=== PATIENT | female | born 1955 | race Caucasian/White ===

== ENCOUNTER 2018-05-23 05:53 | Emergency (ER) | payer BC ==
[~2018-05-23] VITALS: Ht 170.1 cm; Wt 95.3 kg
[~2018-05-23 05:53] MED LIST: ROBAXIN750 MG PO; VOLTAREN50 M1 PO; ZOLOFT50 MG PO
[2018-05-23] MEDS ORDERED: METHYLPRED-DP4 MG PO (05:59)
[2018-05-23] MEDS ORDERED: Motrin,Rufen800 MG PO (07:08)
[2018-05-23] MEDS ORDERED: ORPHENADRINE C100 M1 PO (07:09)
== END 2018-05-23 07:59 | disposition home or self-care (01) ==
LOC: ED 05:53
DX: M54.16 Radiculopathy, lumbar region (principal)

== ENCOUNTER 2019-07-29 11:15 | Inpatient (IN) | payer BC, MEDICARE ==
[~2019-07-29] VITALS: Ht 167.6 cm; Wt 103.0 kg
[2019-07-29] VITALS (8 sets, daily range): BP systolic 90–133; BP diastolic 42–69
[~2019-07-29 11:15] MED LIST changes: +METHYLPRED-DP4 MG PO; +Motrin,Rufen800 MG PO; +ORPHENADRINE C100 M1 PO
[2019-07-29 11:48] LABS: BASO # 0.1 10*3/uL (0.0-0.1); BASO % 0.7 % (0.0-1.0); EOS # 0.3 10*3/uL (0.0-0.4); EOS % 3.5 % (1.0-4.0); HEMATOCRIT 41.4 % (37.0-47.0); HEMOGLOBIN 13.5 g/dl (12.0-16.0); LYMPH % 28.3 % (27.0-41.0); MEAN CELL VOLUME 88.1 fl (81.0-99.0); MEAN CORPUSCULAR HGB 28.7 pg (27.0-31.0); MEAN CORPUSCULAR HGB CONC 32.6 g/dl (33.0-37.0); MEAN PLATELET VOLUME 9.3 fl (9.6-12.3); MONO # 0.5 10*3/uL (0.1-1.0); NEUT # 4.3 10*3/uL (2.3-7.9); NEUT % 60.1 % (47.0-73.0); PLATELET COUNT AUTOMATED 206 10*3/uL (130-400); RED CELL DISTRI WIDTH 13.3 % (0-14.5); WHITE BLOOD COUNT 7.2 10*3/uL (4.8-10.8)
[2019-07-29 11:59] LABS: ACT PARTIAL THROMBO TIME 21.9 SECONDS (20.0-32.1); INTERNATIONAL NORM RATIO 0.9 (2.0-3.5)
[2019-07-29 12:05] LABS: ALBUMIN 3.5 gm/dl (3.1-4.5); ALKALINE PHOSPHATASE 92 U/L (45-117); BUN 14 mg/dl (7-24); CHLORIDE 114 mmol/L (98-107); CREATININE 0.95 mg/dL (0.55-1.02); POTASSIUM 3.8 mmol/L (3.5-5.1); SGOT/AST 22 IU/L (3-35); SGPT/ALT 35 U/L (12-78); SODIUM 143 mmol/L (136-145); TOTAL PROTEIN 6.8 gm/dL (6.4-8.2)
[2019-07-29 12:09] LABS: TROPONIN I < 0.015 ng/ml (<0.045)
[2019-07-29] MEDS ORDERED: ZOLOFT50 MG PO (14:17)
[2019-07-29 14:50] LABS: BILIRUBIN NEGATIVE (NEGATIVE); BLOOD NEGATIVE (NEGATIVE); CLARITY SL CLOUDY (CLEAR); COLOR YELLOW (YELLOW); GLUCOSE NEGATIVE (NEGATIVE); KETONE NEGATIVE (NEGATIVE); LEUKO ESTERASE NEGATIVE (NEGATIVE); NITRITE POSITIVE (NEGATIVE); PH 5.5 (5.0-9.0); SPECIFIC GRAVITY 1.015 (1.005-1.030); UROBILINOGEN 0.2 E.U./dl (0.2-1.0)
[2019-07-29 14:56] LABS: BACTERIA 4+
--- NOTE | 2019-07-29 20:45 | NUR ---
PATIENT REPORTS ALLERGY TO CIPROFLOXACIN. DR MEDRANO NOTIFIED AND ADDED TO ALLERGY LIST. NEW ORDER FOR CEFTRIAXONE 1GM
[2019-07-30] VITALS: BP 84/44
[2019-07-30 00:08] VITALS: BP 100/56
[2019-07-30 06:11] LABS: BASO % 0.4 % (0.0-1.0); EOS # 0.2 10*3/uL (0.0-0.4); EOS % 2.8 % (1.0-4.0); HEMATOCRIT 38.3 % (37.0-47.0); HEMOGLOBIN 12.3 g/dl (12.0-16.0); LYMPH # 2.2 10*3/uL (1.3-4.4); LYMPH % 29.2 % (27.0-41.0); MEAN CELL VOLUME 90.1 fl (81.0-99.0); MEAN CORPUSCULAR HGB 28.9 pg (27.0-31.0); MEAN CORPUSCULAR HGB CONC 32.1 g/dl (33.0-37.0); MEAN PLATELET VOLUME 9.5 fl (9.6-12.3); MONO # 0.5 10*3/uL (0.1-1.0); MONO % 7.2 % (3.0-9.0); NEUT # 4.5 10*3/uL (2.3-7.9); NEUT % 60.1 % (47.0-73.0); PLATELET COUNT AUTOMATED 194 10*3/uL (130-400); RED BLOOD COUNT 4.25 10*6/uL (4.10-5.10); RED CELL DISTRI WIDTH 13.8 % (0-14.5); WHITE BLOOD COUNT 7.5 10*3/uL (4.8-10.8)
[2019-07-30 06:30] LABS: ALBUMIN 2.9 gm/dl (3.1-4.5); ALKALINE PHOSPHATASE 82 U/L (45-117); BUN 12 mg/dl (7-24); CHLORIDE 117 mmol/L (98-107); CREATININE 0.86 mg/dL (0.55-1.02); PHOSPHOROUS 2.8 mg/dL (2.5-4.9); POTASSIUM 4.2 mmol/L (3.5-5.1); SGOT/AST 14 IU/L (3-35); SGPT/ALT 32 U/L (12-78); SODIUM 146 mmol/L (136-145); TOTAL PROTEIN 5.9 gm/dL (6.4-8.2)
[2019-07-30 06:36] LABS: FREE T4 0.83 ng/dl (0.76-1.46); THYROID STIM HORMONE (HS) 0.979 uIU/ml (0.358-4.75)
[2019-07-30 07:35] VITALS: BP 110/68
--- NOTE | 2019-07-30 07:35 | NUR ---
ASSESSMENT COMPLETED AND DOCUMENTED. PT. VERY PLEASENT AND COOPERATIVE. RESTING IN BED. NO C/O OF DIZZINESS. NO SIGNS OF DISCOMFORT. WILL CONTINUE TO MONITOR. BREANNA ORTIZ KELLYCC
--- NOTE | 2019-07-30 08:50 | NUR ---
DOCTOR IN TO SEE PT, IV FLUIDS D/C'D, SITE ASYMPTOMATIC BREANNA ORTIZ SPNRCC
--- NOTE | 2019-07-30 09:00 | NUR ---
Wine Maker in to talk to patient. Patient states lives at home with jose armandobd. There are few steps in the home. Physician: yogi jim Pharmacy: [facility] health services: none Patient's level of ADLs: INDEPENDENT Patient has working utilities: all working DME: none Follow-up physician's appointment after d/c: will be made by hospitalist nurse director upon discharge Does patient want to access PORTAL?: no Discharge plan discussed with patient, present, she states she lives at home with , she is independent in adls and ambulation, she states she just missed a step on a ladder and fell, she states she will return home with medically stable and denies any home needs, was inagreement, case management will follow. JOMAR BRAVO
--- NOTE | 2019-07-30 09:49 | NUR ---
PT RESTING IN BED WATCHING TV. VISITING WITH FAMILY. NO COMPLAINTS OF DIZZINESS OR PAIN. WILL CONTINUE TO MONITOR. BREANNA PENALOZA
[2019-07-30 12:06] VITALS: BP 96/44
--- NOTE | 2019-07-30 12:10 | NUR ---
PT COMPLAINS OF HEADACHE USING PAIN SCALE RATES IT A 6. MEDICATED WITH TYLENOL. WILL CONTINUE TO MONITOR. BREANNA ORTIZ KELLYCC
--- NOTE | 2019-07-30 13:19 | NUR ---
PT. SLEEPING IN BED. EASILY AROUSED. PAIN MEDICATION EFFECTIVE NOW RATES A 2. RESTING QUIETLY. BREANNA ORTIZ SPNRCC
[2019-07-30] MEDS ORDERED: SEPTDS PO (15:00)
--- NOTE | 2019-07-30 16:25 | NUR ---
PT DISCHARGED AT THIS TIME. IV REMOVED AND PRESSURE DRESSING APPLIED. HEART MONITOR RETURNED TO FLOOR. VERBALIZED UNDERSTANDING OF DISCHARGE INSTRUCTIONS.
== END 2019-07-30 16:57 | disposition home or self-care (01) | DRG 315 ==
LOC: ED 11:15 → EDHOLD 12:35 → 4E 12:35
PROVIDERS: Emergency Medicine; Family Medicine; ADMIT Internal Medicine
DX: I95.9 Hypotension, unspecified (principal); N39.0 Urinary tract infection, site not specified; W11.XXXA Fall on and from ladder, initial encounter; M54.16 Radiculopathy, lumbar region; F32.9 Major depressive disorder, single episode, unspecified; E66.9 Obesity, unspecified; R73.9 Hyperglycemia, unspecified; Z68.36 Body mass index [BMI] 36.0-36.9, adult; Z87.891 Personal history of nicotine dependence; Y93.89 Activity, other specified; Y92.89 Other specified places as the place of occurrence of the external cause; Y99.8 Other external cause status; Z82.0 Family history of epilepsy and other diseases of the nervous system; Z80.1 Family history of malignant neoplasm of trachea, bronchus and lung

== ENCOUNTER 2023-03-02 15:59 | Emergency (ER) | payer MEDICARE ==
[~2023-03-02] VITALS: Ht 167.6 cm; Wt 101.2 kg
[~2023-03-02 15:59] MED LIST changes: +SEPTDS PO
[2023-03-02 16:26] LABS: BASO # 0.1 10*3/uL (0.0-0.1); BASO % 0.8 % (0.0-1.0); EOS # 0.2 10*3/uL (0.0-0.4); EOS % 3.1 % (1.0-4.0); HEMATOCRIT 43.3 % (37.0-47.0); LYMPH % 26.2 % (27.0-41.0); MEAN CELL VOLUME 87.8 fl (81.0-99.0); MEAN CORPUSCULAR HGB 28.6 pg (27.0-31.0); MEAN CORPUSCULAR HGB CONC 32.6 g/dl (33.0-37.0); MEAN PLATELET VOLUME 8.9 fl (9.6-12.3); MONO # 0.6 10*3/uL (0.1-1.0); MONO % 7.2 % (3.0-9.0); NEUT # 4.8 10*3/uL (2.3-7.9); NEUT % 62.3 % (47.0-73.0); PLATELET COUNT AUTOMATED 218 10*3/uL (130-400); RED BLOOD COUNT 4.93 10*6/uL (4.10-5.10); RED CELL DISTRI WIDTH 13.4 % (0-14.5); WHITE BLOOD COUNT 7.6 10*3/uL (4.8-10.8)
[2023-03-02 16:36] LABS: ACT PARTIAL THROMBO TIME 23.1 SECONDS (20.0-32.1)
[2023-03-02 16:53] LABS: ALKALINE PHOSPHATASE 104 U/L (46-116); BUN 16 mg/dl (9-23); CHLORIDE 113 mmol/L (98-107); LIPASE 31 U/L (12-53); POTASSIUM 3.9 mmol/L (3.4-5.1); SGPT/ALT 14 U/L (10-49); TOTAL PROTEIN 6.5 gm/dL (6.0-8.0)
== END 2023-03-02 18:40 | disposition home or self-care (01) ==
LOC: ED 15:59
PROVIDERS: Emergency Medicine
DX: R55 Syncope and collapse (principal); F32.A Depression, unspecified; Z88.1 Allergy status to other antibiotic agents; Z87.891 Personal history of nicotine dependence

== ENCOUNTER → 2023-03-23 | Outpatient (CLI) | payer MEDICARE | END | disposition home or self-care (01) | LOC: CARD 07:15 | PROVIDERS: ATTEND Family Medicine | DX: R55 Syncope and collapse (principal); R00.2 Palpitations ==

== ENCOUNTER 2025-06-08 20:42 | Emergency (ER) | payer MEDICARE ==
[~2025-06-08] VITALS: Ht 167.6 cm; Wt 88.5 kg
[2025-06-08] MEDS ORDERED: predniSONE 20 MG TAB PO ONE (21:00)
[2025-06-08] MEDS ORDERED: PREDNISONE20 M1 PO (21:08)
== END 2025-06-08 21:32 | disposition home or self-care (01) ==
LOC: ED 20:42
DX: L50.9 Urticaria, unspecified (principal); Z87.891 Personal history of nicotine dependence

== ENCOUNTER → 2025-06-17 | Outpatient (CLI) | payer MEDICARE ==
[~2025-06-17] MED LIST changes: +PREDNISONE20 M1 PO
== END | disposition home or self-care (01) ==
LOC: LAB 07:58
PROVIDERS: ATTEND Family Medicine
DX: T78.40XA Allergy, unspecified, initial encounter (principal); X58.XXXA Exposure to other specified factors, initial encounter; Y93.89 Activity, other specified; Y92.89 Other specified places as the place of occurrence of the external cause; Y99.8 Other external cause status

== ENCOUNTER → 2025-06-25 | Outpatient (CLI) | payer MEDICARE | END | disposition home or self-care (01) | LOC: LAB 08:45 | PROVIDERS: ATTEND Family Medicine | DX: J30.81 Allergic rhinitis due to animal (cat) (dog) hair and dander (principal) ==